=== PATIENT | female | born 1945 | race Caucasian/White ===

== ENCOUNTER 2022-06-11 08:24 | Day surgery (SDC) | payer MEDICARE ==
--- NOTE | 2022-06-10 10:23 | HP ---
DATE OF SURGERY: 06/11/2022 HISTORY OF PRESENT ILLNESS: The patient is a 76-year-old woman presents with one year follow up colonoscopy. She had some polyps on last exam and she had some inflammation. She presents for follow up colonoscopy. PAST MEDICAL HISTORY: Hypertension, gout. PAST SURGICAL HISTORY: Appendectomy. Tubal ligation. Hysterectomy. ALLERGIES: NKDA. MEDICATIONS: Aspirin, allopurinol, Bisoprolol, Lasix, magnesium, multivitamin. FAMILY HISTORY: None. SOCIAL HISTORY: None. REVIEW OF SYSTEMS: CONSTITUTIONAL: Denies fever or chills. CHEST: Denies shortness of breath. CVS: Denies chest pain. ABDOMEN: Denies abdominal pain. PHYSICAL EXAMINATION: GENERAL: No acute distress. CHEST: Nonlabored. No shortness of breath. CVS: Regular rate and rhythm. ABDOMEN: Soft. IMPRESSION: One year follow up of colitis and history of polyps. PLAN: Colonoscopy with Dr. Mejia Parks. As dictated by Adrianne Hartman NP.
[2022-06-11] MEDS: Lactated Ringers 1,000 ML IV SCH (08:29)
[2022-06-11 08:55] VITALS: O2SAT 95
[2022-06-11] MEDS ORDERED: Xylocaine-Mpf 2% 5 Ml Vial ONE (11:03)
[2022-06-11] MEDS ORDERED: Versed 2 MG/2 ML Injection ONE (11:03)
[2022-06-11] MEDS ORDERED: DIPRIVAN 200 MG/20 ML IV ONE ×2 (11:03→11:23)
[2022-06-11] MEDS ORDERED: GlucaGen 1 MG ONE (11:21)
[2022-06-11 12:05] VITALS: BP 118/67; PULSE 64
--- NOTE | 2022-06-11 13:52 | OP ---
SURGERY DATE/TIME: 06/11/2022 1107 PREOPERATIVE DIAGNOSIS: History of polyps and colitis. POSTOPERATIVE DIAGNOSIS: Three polyps: 6 mm, 1 mm and 2 cm all in the cecal area. PROCEDURES: 1) Colonoscopy complete to cecum. 2) Hot polypectomy x3. SURGEON: Mejia Parks M.D. ANESTHESIA: MAC. COMPLICATIONS: None. CONDITION: Stable. INDICATION: The patient has history of polyps and colitis, presents for five year follow up. DESCRIPTION OF PROCEDURE: Taken to endoscopy. Anal digital examination satisfactory. Scope introduced. There is a little light spasm. Glucagon was ordered and this improved. Colon navigated to the left across the transverse, down a fairly long ascending. Base of the cecum identified. Appendiceal orifice identified. There were three polyps here: 1 mm, 6 mm and 2 cm. These were all removed with hot biopsy forceps to extinction. On circumferential withdrawal, no additional lesions noted. The patient tolerated the procedure satisfactorily. Follow up five years.
[2022-06-16 08:50] LABS: SURGICAL PATHOLOGY SEE COMMENTS
== END 2022-06-11 12:25 | disposition home or self-care (01) ==
LOC: SDC 08:24
PROVIDERS: ATTEND Surgery
DX: Z09 Encounter for follow-up examination after completed treatment for conditions other than malignant neoplasm (principal); Z86.010 Personal history of colon polyps; Z87.19 Personal history of other diseases of the digestive system; D12.0 Benign neoplasm of cecum
CPT/HCPCS: 99100; J1610; J2250; J2704